=== PATIENT | female | born 1990 | race Caucasian/White ===

== ENCOUNTER 2016-11-27 07:45 | Emergency (ER) | payer OTHER ==
[2016-11-27 07:59] VITALS: BP 153/93
--- NOTE | 2016-11-27 08:43 | RAD ---
INDICATION: Cough and fever. COMPARISON: Comparison is made with a prior chest x-ray study from February 13, 2014. TECHNIQUE: Dual-energy PA and lateral views of the chest were obtained. FINDINGS: The heart is within normal limits in size. Mediastinal and hilar contours appear within normal limits. The lungs are clear. No pleural effusion is present. IMPRESSION: NO EVIDENCE FOR ACTIVE CARDIOPULMONARY DISEASE.
--- NOTE | 2016-12-04 22:53 | UC ---
Jakub Granados Adam, scribed for Marcio Nguyen MD on 11/27/16 at 0754 . Throat Pain/Nasal Edwar HPI - HPI Summary HPI Summary: Pt is a 26 year old female presenting with a dry cough and sore throat. She states that the cough set on 10 days and the sore throat has set on since then. She also c/o generalized myalgia and a fever since yesterday (unknown Tmax). She denies nausea and vomiting. Pt had PNA last year with similar symptoms to these. Surgical Hx of appy and . No Hx of asthma. No other PMHx. Last MP was 10/04. FMHx of DM, HTN, and cardiac disease. - History of Current Complaint Stated Complaint: COUGH Hx Obtained From: Patient Onset/Duration: Gradual Onset, Lasting Days, Still Present Severity: Moderate Cough: Nonproductive Associated Signs & Symptoms: Positive: Fever, Other - Sore throat - Allergies/Home Medications Allergies/Adverse Reactions: Allergies Allergy/AdvReac Type Severity Reaction Status Date / Time No Known Allergies Allergy Verified 12/23/15 21:32 PMH/Surg Hx/FS Hx/Imm Hx - Surgical History Surgical History: Yes Surgery Procedure, Year, and Place: Appendectomy, - Family History Known Family History: Positive: Cardiac Disease, Hypertension, Diabetes - Social History Occupation: Employed Part-time Lives: With Family - Alcohol Use: Rare Substance Use Type: None Smoking Status (MU): Never Smoked Tobacco Review of Systems Constitutional: Fever ENT: Sore Throat Respiratory: Cough Musculoskeletal: Myalgia - Generalized All Other Systems Reviewed And Are Negative: Yes Physical Exam Triage Information Reviewed: Yes Vital Signs: Initial Vital Signs Temp 99.6 F 11/27/16 07:51 Pulse 82 11/27/16 07:51 Resp 18 11/27/16 07:51 BP 153/93 11/27/16 07:51 Pulse Ox 97 11/27/16 07:51 - Additional Comments VITAL SIGNS: Reviewed. GENERAL: Patient is a well developed and nourished feamle with some distress secondary to the shortness of breath. However, she is able to speak in full sentences. HEAD AND FACE: Normocephalic and atraumatic. EYES: PERRLA, EOMI x 2, No injected conjunctiva. EARS: Hearing grossly intact. Ear canals and tympanic membranes WNL MOUTH: Dry oral mucosa. No pharyngeal erythema, no exudate. NECK: Supple, trachea is midline, no adenopathy, no JVD, no carotid bruit. CHEST: Symmetric, No intercostal or abdominal retraction, LUNGS: CTA B/L. CVS: RRR,, S1 and S2 present, no murmurs or gallops appreciated. ABDOMEN: Soft, non-tender. No signs of distention. Positive BS. No rebound, no guarding, and no masses palpated. EXTREMITIES: FROM in all major joints, no edema, no cyanosis or clubbing. NEURO: Alert and oriented x 3. No acute neurological deficits. Speech is normal and follows commands. SKIN: Dry and warm Diagnostics - Laboratory Diagnostic Studies Completed/Ordered: Group A Strep (Rapid) - Negative - Radiology CXR Radiology Interpretation Completed By: ED Physician - Negative for acute cardiopulmonary pathology. Throat Pain/Nasal Course/Dx - Course Assessment/Plan: Pt is a 26 year old female presenting with a dry cough and sore throat. She states that the cough set on 10 days and the sore throat has set on since then. She also c/o generalized myalgia and a fever since yesterday (unknown Tmax). She denies nausea and vomiting. Pt had PNA last year with similar symptoms to these. Rapid strep test: negative. I did a test since LMP pa 10/12/16. Urine test was negative. CXR impression: Negative for acute pathology. I believe all her symptoms are due to viral etiology. Patient was prescribed tessalon tessalon tablets and robitussin DM. She was recommended to return to the ED if she develops a fever, chills, worsening sore throat, difficulty swallowing. Patient understands and agree. Patient is hemodynamically stable and alert and oriented x 3. - Differential Dx/Diagnosis Differential Diagnosis/HQI/PQRI: Influenza, Laryngitis, Pharyngitis, Sinusitis, Tonsillitis, URI Provider Diagnoses: Bronchitis; URI. Discharge - Discharge Plan Condition: Stable Disposition: HOME Prescriptions: Albuterol HFA INHALER* [Ventolin HFA Inhaler*] 1 - 2 puff INH Q4H PRN #1 mdi PRN Reason: Dyspnea Benzonatate CAP* [Tessalon CAP*] 100 mg PO TID #12 cap GuaiFENesin DM* [Robitussin DM*] 10 ml PO Q6H PRN #120 ml PRN Reason: Cough Patient Education Materials: Acute Bronchitis (ED), Upper Respiratory Infection (ED) Forms: *Work Release Referrals: [facility] [place] PHYSICIAN REFERRAL [Outside] Additional Instructions: Follow up with [facility] [place] Physician Referral. The documentation as recorded by the Jakub gavin Adam accurately reflects the service I personally performed and the decisions made by Patrick delgado Walter, MD.
== END 2016-11-27 08:54 | disposition home or self-care (01) ==
LOC: UCEAST 07:45
DX: J40 Bronchitis, not specified as acute or chronic (principal); J06.9 Acute upper respiratory infection, unspecified; Z32.02 Encounter for pregnancy test, result negative
CPT/HCPCS: 71020; 81025; 87651; 99212; G0463

== ENCOUNTER 2017-01-04 18:39 | Emergency (ER) | payer OTHER ==
--- NOTE | 2017-01-04 19:20 | UC ---
Respiratory Complaint HPI - HPI Summary HPI Summary: The patient comes in today for: 1. cough, body aches, nasal congestion, otalgia: Onset: 1 week started with a sore throat and got worse. Palliative/Provocative: Theraflu did not help. Quality: Soreness Region: Shoulder, back, pelvic musculature. Severity: 6/10 Time: Constant. Associated symptoms: Fever: No temperature taken at home. Rhinitis: None Cough: Non-productive. Sinus pressure: None. Wheezing: Today. Inhalers use: in the past but not now. Dyspnea: Worse when going outside with associated shortness of breath. Previous treatment: None * - History of Current Complaint Chief Complaint: UCRespiratory Stated Complaint: UPPER RESPIRATORY Time Seen by Provider: 01/04/17 19:14 Hx Obtained From: Patient Hx Last Menstrual Period: 12/09/16 ?: No - Allergies/Home Medications Allergies/Adverse Reactions: Allergies Allergy/AdvReac Type Severity Reaction Status Date / Time No Known Allergies Allergy Verified 01/04/17 18:50 PMH/Surg Hx/FS Hx/Imm Hx Previously Healthy: No Endocrine History Of: Denies: Diabetes, Thyroid Disease, Hyperthyroidism, Hypothyroidism, Dyslipidemia Cardiovascular History Of: Denies: Cardiac Disorders, Hypertension, Pacemaker/ICD, Myocardial Infarction , Congestive Heart Failure, Atrial Fibrillation, Deep Vein Thrombosis, Bleeding Disorders Respiratory History Of: Reports: Asthma - Inhaler use started 10 years ago, episodically according to respiratory sym Denies: COPD, Bronchitis, Pneumonia, Pulmonary Embolism GI/ History Of: Denies: Gastroesophageal Reflux, Ulcer, Gastrointestinal Bleed, Gall Bladder Disease, Kidney Stones, Diverticulitis, Renal Disease, Urosepsis Neurological History Of: Denies: TIA, CVA, Dementia, Seizures, Migraine Psychological History Of: Denies: Anxiety, Depression, Bipolar Disorder, Schizophrenia, Post Traumatic Stress Disorder Cancer History Of: Denies: Lung Cancer, Colorectal Cancer, Breast Cancer, Prostate Cancer, Cervical Cancer Other History Of: Negative For: HIV, Hepatitis B, Hepatitis C, Anticoagulant Therapy - Surgical History Surgical History: Yes Surgery Procedure, Year, and Place: Appendectomy, - Family History Known Family History: Positive: Hypertension, Diabetes - Social History Occupation: Employed Full-time Lives: With Family Alcohol Use: Rare Substance Use Type: None Smoking Status (MU): Never Smoked Tobacco Review of Systems Constitutional: Negative Skin: Negative Eyes: Negative ENT: Negative Respiratory: Shortness Of Breath, Cough Cardiovascular: Negative Gastrointestinal: Negative Genitourinary: Negative All Other Systems Reviewed And Are Negative: Yes Physical Exam Triage Information Reviewed: Yes Appearance: Well-Appearing, No Pain Distress, Well-Nourished Vital Signs: Initial Vital Signs Temp 98.8 F 01/04/17 18:51 Pulse 76 01/04/17 18:51 Resp 18 01/04/17 18:51 BP 144/85 01/04/17 18:51 Pulse Ox 100 01/04/17 18:51 Vital Signs Reviewed: Yes Eyes: Positive: Conjunctiva Clear. Negative: Discharge ENT: Positive: Hearing grossly normal. Negative: Pharyngeal erythema, Nasal congestion, Nasal drainage, TM bulging, TM dull, TM red, Tonsillar swelling, Tonsillar exudate Dental: Negative: Gross Decay/Caries @, Dental Fracture @ Neck: Positive: Supple, Nontender, No Lymphadenopathy. Negative: Nuchal Rigidity Respiratory: Positive: Chest non-tender, Lungs clear, No respiratory distress, No accessory muscle use. Negative: Crackles, Wheezing Cardiovascular: Positive: RRR, No Murmur Abdomen Description: Positive: Nontender, No Organomegaly, Soft. Negative: Distended, Guarding Musculoskeletal: Positive: Strength Intact, ROM Intact Neurological: Positive: Alert, Muscle Tone Normal Psychological: Positive: Normal Response To Family, Age Appropriate Behavior, Consolable Skin: Negative: rashes, breakdown UC Diagnostic Evaluation - Laboratory O2 Sat by Pulse Oximetry: 100 Re-Evaluation - Re-Evaluation First Eval Change: Unchanged - DuoNeb treatment did not help the patients dyspnea. She did not benefit from this. Respiratory Course/Dx - Differential Dx/Diagnosis Differential Diagnosis/HQI/PQRI: Bronchitis, Sinusitis Provider Diagnoses: Upper respiratory infection. Cough (with some wheezing),. Post infectious cough. Discharge - Discharge Plan Condition: Stable Disposition: HOME Patient Education Materials: Chronic Cough (ED), Upper Respiratory Infection ( ED), Viral Syndrome (ED) Referrals: No Primary Care Phys,NOPCP [Primary Care Provider] - 1 Week (Please see your primary care provider in about a week to see how well you are doing. If you get worse, please be seen sooner by your primary care provider or us. IF you don't have a primary care provider, please reference the list of local providers included with your discharge papers to get one. )
[2017-01-04] MEDS ORDERED: Albuterol 2.5 MG/3 ML NEB.SOL* (0.083%) INH ONE (19:24)
[2017-01-04] MEDS ORDERED: Ipratropium 0.5MG/2.5ML NEB* 0.5 MG/2.5 ML NEB.SOLN INH ONE (19:25)
[2017-01-04] MEDS ORDERED: Acetaminop/Codeine 30 MG TAB* 1 TAB (300 MG/30 MG) PO ONE (20:01)
[2017-01-04 20:20] VITALS: BP 133/86
== END 2017-01-04 20:19 | disposition home or self-care (01) ==
LOC: UCCORT 18:39
DX: J06.9 Acute upper respiratory infection, unspecified (principal); R05 Cough
CPT/HCPCS: 99212; A9270-GY; G0463; J7644

== ENCOUNTER 2018-01-10 12:50 | Emergency (ER) | payer OTHER ==
[2018-01-10 13:13] VITALS: BP 135/72
[2018-01-10] MEDS ORDERED: predniSONE TAB* 20 MG PO ONE (13:23)
[2018-01-10] MEDS ORDERED: Albuterol 2.5 MG/3 ML NEB.SOL* (0.083%) INH ONE (13:23)
--- NOTE | 2018-01-10 13:24 | UC ---
Respiratory Complaint HPI - HPI Summary HPI Summary: Patient dx with flu 9 days aog, still has cough that is keeping her up at night. - History of Current Complaint Chief Complaint: UCRespiratory Stated Complaint: COUGH Time Seen by Provider: 01/10/18 13:16 Hx Obtained From: Patient Hx Last Menstrual Period: 12/25/17 ?: No Onset/Duration: Gradual Onset, Lasting Days Timing: Constant Severity Initially: Mild Severity Currently: Mild Pain Intensity: 0 Character: Cough: Nonproductive Aggravating Factors: Exertion, Deep Breaths Alleviating Factors: Nothing Associated Signs And Symptoms: Positive: URI - Allergies/Home Medications Allergies/Adverse Reactions: Allergies Allergy/AdvReac Type Severity Reaction Status Date / Time No Known Allergies Allergy Verified 01/10/18 13:05 Home Medications: Home Medications Dm/PE/Acetaminophen/Doxylamine [Daytime-Nighttime Cold-Flu] 20 ml PO Q4H PRN 08/20 [History Confirmed 01/10/18] guaiFENesin [Mucinex] 600 mg PO ONCE PRN 01/10/18 [History Confirmed 01/10/18] PMH/Surg Hx/FS Hx/Imm Hx Previously Healthy: Yes Other History Of: Negative For: HIV, Hepatitis B, Hepatitis C, Anticoagulant Therapy - Surgical History Surgical History: Yes Surgery Procedure, Year, and Place: Appendectomy, - Family History Known Family History: Positive: None, Cardiac Disease, Hypertension, Diabetes - Social History Alcohol Use: Rare Substance Use Type: None Smoking Status (MU): Never Smoked Tobacco Review of Systems Constitutional: Negative Skin: Negative Eyes: Negative ENT: Negative Respiratory: Cough Cardiovascular: Negative Gastrointestinal: Negative Genitourinary: Negative Motor: Negative Neurovascular: Negative Musculoskeletal: Negative Neurological: Negative Psychological: Negative Is Patient Immunocompromised?: No All Other Systems Reviewed And Are Negative: Yes Physical Exam Triage Information Reviewed: Yes Appearance: Well-Appearing, Well-Nourished, Pain Distress Vital Signs: Initial Vital Signs Temp 99 F 01/10/18 13:09 Pulse 80 01/10/18 13:09 Resp 20 01/10/18 13:09 BP 135/72 01/10/18 13:09 Pulse Ox 99 01/10/18 13:09 Vital Signs Reviewed: Yes Eye Exam: Normal ENT: Positive: Pharyngeal erythema Dental Exam: Normal Neck exam: Normal Neck: Positive: Supple, Nontender, No Lymphadenopathy Respiratory Exam: Normal Respiratory: Positive: Chest non-tender, Lungs clear, Normal breath sounds, Other: - cough present Cardiovascular Exam: Normal Cardiovascular: Positive: RRR, No Murmur, Pulses Normal Abdominal Exam: Normal Abdomen Description: Positive: Nontender, No Organomegaly, Soft Bowel Sounds: Positive: Present Musculoskeletal Exam: Normal Neurological Exam: Normal Psychological Exam: Normal Skin Exam: Normal UC Diagnostic Evaluation - Laboratory O2 Sat by Pulse Oximetry: 99 - Radiology Xray Interpretation: No Acute Changes Radiology Interpretation Completed By: Radiologist Respiratory Course/Dx - Course Course Of Treatment: hx obtained, exam performed ,meds reviewed, treated for cough - Differential Dx/Diagnosis Differential Diagnosis/HQI/PQRI: Bronchitis, Influenza Provider Diagnoses: cough. wheezing. influenza Discharge - Discharge Plan Condition: Stable Disposition: HOME Prescriptions: Albuterol HFA INHALER* [Ventolin HFA Inhaler*] 2 puff INH Q2H PRN #1 mdi PRN Reason: Sob/Wheezing guaiFENesin/CODIEN 100MG-10MG* [Robitussin AC 100Mg-10Mg*] 10 ml PO BEDTIME PRN #70 ml MDD 10 ml PRN Reason: Cough predniSONE TAB* [Deltasone TAB*] 40 mg PO DAILY #14 tab Patient Education Materials: Bronchospasm (ED) Referrals: No Primary Care Phys,NOPCP [Primary Care Provider] - Additional Instructions: 1. use the medication as prescribed. 2. COntinue to get plenty of rest and fluids. 3. FOllow up as needed.
--- NOTE | 2018-01-10 14:18 | RAD ---
HISTORY: Cough, shortness of breath COMPARISONS: November 27, 2016 VIEWS: 4: Frontal dual-energy and lateral views of the chest. FINDINGS: CARDIOMEDIASTINAL SILHOUETTE: The cardiomediastinal silhouette is normal. JUDITH: The judith are normal. PLEURA: The costophrenic angles are sharp. No pleural abnormalities are noted. LUNG PARENCHYMA: The lungs are clear. ABDOMEN: The upper abdomen is clear. There is no subphrenic gas. BONES AND SOFT TISSUES: No bone or soft tissue abnormalities are noted. OTHER: None. IMPRESSION: NO ACTIVE CARDIOPULMONARY DISEASE.
== END 2018-01-10 14:35 | disposition home or self-care (01) ==
LOC: UCCORT 12:50
DX: R05 Cough (principal); R06.2 Wheezing; J11.1 Influenza due to unidentified influenza virus with other respiratory manifestations; Z32.02 Encounter for pregnancy test, result negative
CPT/HCPCS: 71046; 84702; 99212; G0463; J7512

== ENCOUNTER 2018-01-23 15:03 | Emergency (ER) | payer OTHER ==
[2018-01-23 15:13] VITALS: BP 138/79
[2018-01-23] MEDS ORDERED: Ipratropium 0.5MG/2.5ML NEB* 0.5 MG/2.5 ML NEB.SOLN INH ONE (15:36)
[2018-01-23] MEDS ORDERED: Albuterol 2.5 MG/3 ML NEB.SOL* (0.083%) INH ONE ×2 (15:36→16:24)
--- NOTE | 2018-01-23 15:41 | UC ---
Respiratory Complaint HPI - HPI Summary HPI Summary: cough and wheezing x >3weeks no f/c sinus pressure and pain cough productive of dark sputum no CP - History of Current Complaint Chief Complaint: UCGeneralIllness Stated Complaint: COUGH, SHORTNESS OF BREATH Time Seen by Provider: 01/23/18 15:17 Hx Obtained From: Patient Hx Last Menstrual Period: 12/25/17 Onset/Duration: Sudden Onset Timing: Constant Severity Initially: Moderate Severity Currently: Moderate Pain Intensity: 0 Pain Scale Used: 0-10 Numeric Character: Cough: Productive Aggravating Factors: Exertion Alleviating Factors: Bronchodilator Associated Signs And Symptoms: Positive: Wheezing, URI - Allergies/Home Medications Allergies/Adverse Reactions: Allergies Allergy/AdvReac Type Severity Reaction Status Date / Time No Known Allergies Allergy Verified 01/23/18 15:13 PMH/Surg Hx/FS Hx/Imm Hx Previously Healthy: Yes Respiratory History: Bronchitis, Pneumonia Other History Of: Negative For: HIV, Hepatitis B, Hepatitis C, Anticoagulant Therapy - Surgical History Surgical History: Yes Surgery Procedure, Year, and Place: Appendectomy, - Family History Known Family History: Positive: Cardiac Disease, Hypertension, Diabetes - Social History Alcohol Use: Rare Substance Use Type: None Smoking Status (MU): Never Smoked Tobacco Review of Systems Constitutional: Fatigue Skin: Negative Eyes: Negative ENT: Nasal Discharge, Sinus Congestion Respiratory: Cough Cardiovascular: Negative Gastrointestinal: Negative Genitourinary: Negative Motor: Negative Neurovascular: Negative Musculoskeletal: Negative Neurological: Negative Psychological: Negative Is Patient Immunocompromised?: No All Other Systems Reviewed And Are Negative: Yes Physical Exam Triage Information Reviewed: Yes Appearance: Well-Appearing, No Pain Distress, Well-Nourished Vital Signs: Initial Vital Signs Temp 98.2 F 01/23/18 15:10 Pulse 102 01/23/18 15:10 Resp 18 01/23/18 15:10 BP 138/79 01/23/18 15:10 Pulse Ox 100 01/23/18 15:10 Vital Signs Reviewed: Yes Eyes: Positive: Conjunctiva Clear ENT: Positive: Hearing grossly normal, Nasal congestion, TMs normal, Sinus tenderness, Uvula midline. Negative: Nasal drainage, Trismus, Muffled voice, Hoarse voice, Dental tenderness Neck: Positive: Supple, Nontender, No Lymphadenopathy Respiratory: Positive: No respiratory distress, No accessory muscle use, Wheezing Cardiovascular: Positive: RRR, No Murmur Musculoskeletal: Positive: ROM Intact, No Edema Neurological: Positive: Alert Psychological Exam: Normal Skin Exam: Normal UC Diagnostic Evaluation - Laboratory O2 Sat by Pulse Oximetry: 100 - normal/not hypoxic - Radiology Xray Interpretation: No Acute Changes Radiology Interpretation Completed By: Radiologist Re-Evaluation - Re-Evaluation First Eval Re-Evaluation Time: 16:20 Change: Improved - less wheezing Second Eval Re-Evaluation Time: 16:52 Change: Improved - lungs clear Respiratory Course/Dx - Differential Dx/Diagnosis Provider Diagnoses: acute bronchitis with bronchospasm Discharge - Sign-Out/Discharge Documenting (check all that apply): Discharge - Discharge Plan Condition: Stable Disposition: HOME Prescriptions: Albuterol HFA INHALER* [Ventolin HFA Inhaler*] 2 puff INH QID #1 mdi Amoxicillin PO (*) [Amoxicillin 875 MG (*)] 875 mg PO BID #20 tab Benzonatate CAP* [Tessalon CAP*] 100 - 200 mg PO TID PRN #28 cap PRN Reason: Cough predniSONE [Deltasone] 40 mg PO DAILY #10 tab Patient Education Materials: Bronchospasm (ED), Acute Bronchitis (ED) Referrals: No Primary Care Phys,NOPCP [Primary Care Provider] - Additional Instructions: recheck for new or worsening symptoms you need to find an MD in [place] to follow up with if your cough and wheezing persists you may need other testing we are treating you for bronchitis but other things can cause wheezing and if this persists you may need to see a specialist - Billing Disposition and Condition Condition: STABLE Disposition: HOME
--- NOTE | 2018-01-23 16:09 | RAD ---
Indication: Persistent cough. 2 views of the chest including dual energy PA views demonstrate no mediastinal shift. Heart is of normal size and configuration. Lung ordaz are clear. IMPRESSION: No active cardiopulmonary disease is noted.
[2018-01-23] MEDS ORDERED: predniSONE TAB* 20 MG PO ONE (16:24)
== END 2018-01-23 16:57 | disposition home or self-care (01) ==
LOC: UCCORT 15:03
DX: J20.9 Acute bronchitis, unspecified (principal)
CPT/HCPCS: 71046; 99212; G0463; J7512

== ENCOUNTER 2019-01-30 09:17 | Emergency (ER) | payer MEDICAID, OTHER ==
[2019-01-30 09:57] VITALS: BP 104/85
--- NOTE | 2019-01-30 11:06 | UC ---
Throat Pain/Nasal Edwar HPI - HPI Summary HPI Summary: Pt presents with c/o nasal congestion, sinus pressure, pain and cough. Pt is 32 weeks and new to area. Pt called OB and was referred to PCP. Pt does not have PCP. - History of Current Complaint Chief Complaint: UCRespiratory Stated Complaint: CONGESTION/COUGH Time Seen by Provider: 01/30/19 10:57 Hx Obtained From: Patient Hx Last Menstrual Period: 12/25/17 ?: Yes Onset/Duration: Gradual Onset, Lasting Days, Still Present Severity: Moderate Pain Intensity: 0 Cough: Productive Associated Signs & Symptoms: Positive: Nasal Discharge Related History: Seasonal Allergies - possible - Epiglottits Risk Factors Epiglottis Risk Factors: Negative - Allergies/Home Medications Allergies/Adverse Reactions: Allergies Allergy/AdvReac Type Severity Reaction Status Date / Time No Known Allergies Allergy Verified 01/30/19 09:52 Home Medications: Home Medications Cholecalciferol TAB* [Vitamin D TAB*] 1,000 unit PO DAILY 01/30/19 [History Confirmed 01/30/19] Vitamin TAB* 1 tab PO DAILY 01/30/19 [History Confirmed 01/30/19] PMH/Surg Hx/FS Hx/Imm Hx Previously Healthy: Yes Other History Of: Negative For: HIV, Hepatitis B, Hepatitis C, Anticoagulant Therapy - Surgical History Surgical History: Yes Surgery Procedure, Year, and Place: Appendectomy, - Family History Known Family History: Positive: Cardiac Disease, Hypertension, Diabetes - Social History Occupation: Employed Full-time Lives: With Family Alcohol Use: None Substance Use Type: None Smoking Status (MU): Never Smoked Tobacco Have You Smoked in the Last Year: No - Immunization History Vaccination Up to Date: Yes Review of Systems All Other Systems Reviewed And Are Negative: Yes Constitutional: Positive: Chills, Fatigue Skin: Positive: Negative Eyes: Positive: Negative ENT: Positive: Sore Throat, Nasal Discharge, Sinus Congestion, Sinus Pain/ Tenderness Respiratory: Positive: Cough Cardiovascular: Positive: Negative Gastrointestinal: Positive: Negative Genitourinary: Positive: Negative Motor: Positive: Negative Neurovascular: Positive: Negative Musculoskeletal: Positive: Myalgia Neurological: Positive: Headache Psychological: Positive: Negative Is Patient Immunocompromised?: No Physical Exam Triage Information Reviewed: Yes Appearance: Ill-Appearing Vital Signs: Initial Vital Signs Temp 97.8 F 01/30/19 09:51 Pulse 90 01/30/19 09:51 Resp 18 01/30/19 09:51 BP 104/85 01/30/19 09:51 Pulse Ox 100 01/30/19 09:51 Vital Signs Reviewed: Yes Eye Exam: Normal ENT: Positive: Nasal congestion, Nasal drainage, Sinus tenderness Dental Exam: Normal Neck exam: Normal Respiratory Exam: Normal Cardiovascular Exam: Normal Musculoskeletal Exam: Normal Neurological Exam: Normal Psychological Exam: Normal Skin Exam: Normal Throat Pain/Nasal Course/Dx - Differential Dx/Diagnosis Differential Diagnosis/HQI/PQRI: Pharyngitis, Sinusitis, Tonsillitis, URI Provider Diagnosis: Sinusitis Discharge - Sign-Out/Discharge Documenting (check all that apply): Patient Departure All imaging exams completed and their final reports reviewed: No Studies - Discharge Plan Condition: Stable Disposition: HOME Prescriptions: Amoxicillin PO (*) [Amoxicillin 875 MG (*)] 875 mg PO Q12H #20 tab Cetirizine* [ZyrTEC 10 MG TAB*] 10 mg PO DAILY #30 tab Fluticasone NASAL SPRAY 50MCG* [Flonase NASAL SPRAY 50MCG*] 2 spray BOTH NARES DAILY 7 Days #1 btl Patient Education Materials: Sinusitis (ED), Allergic Rhinitis (ED) Referrals: [facility] [place] [facility] [Outside] No Primary Care Phys,NOPCP [Primary Care Provider] - - Billing Disposition and Condition Condition: STABLE Disposition: Home - Attestation Statements Provider Attestation: I was available for consult. This patient was seen by the JORDAN. The patient was not presented to, seen by, or examined by me. EK
== END 2019-01-30 11:17 | disposition home or self-care (01) ==
LOC: UCCORT 09:17
DX: O99.513 Diseases of the respiratory system complicating pregnancy, third trimester (principal); J32.9 Chronic sinusitis, unspecified; O99.89 Other specified diseases and conditions complicating pregnancy, childbirth and the puerperium; M79.10 Myalgia, unspecified site; Z3A.32 32 weeks gestation of pregnancy
CPT/HCPCS: 99212; G0463

== ENCOUNTER 2022-01-30 05:42 | Inpatient (IN) ==
[2022-01-30] MEDS ORDERED: Famotidine IV 10 MG/ML 2 ml VIAL (20 mg) IV ONE (06:00)
[2022-01-30] MEDS ORDERED: Buffered Lidocaine 1% SYRIN 1 ml INTRADERM ONE (06:00)
[2022-01-30] MEDS ORDERED: Lactated Ringers 1000 ml BAG 1,000 ML IV SCH (06:00)
[2022-01-30] MEDS ORDERED: Scopolamine 1 mg/72hr PATCH ONE (06:16)
[2022-01-30] MEDS ORDERED: Heparin 5000 UNITS/ML 1 mL VIAL ONE (06:17)
[2022-01-30] MEDS ORDERED: ceFAZolin 2 GM in NS PREMIX 2 GM/100 ML BAG IVPB ONE (06:17)
[2022-01-30] MEDS ORDERED: Famotidine IV 10 MG/ML 2 ml VIAL (20 mg) ONE (06:17)
[2022-01-30] MEDS ORDERED: ceFAZolin VIAL 1 GM in NS 0.9% 50 ML 50 ML IVPB ONE (07:00)
[2022-01-30] MEDS ORDERED: Bupivacaine 0.25% EPI 200,000 30 ML SDV ONE ×2 (07:05→08:19)
[2022-01-30] MEDS ORDERED: Methylene Blue 0.5 % 50 MG/10 ML AMP IV ONE (07:05)
[2022-01-30] MEDS ORDERED: Dexamethasone IV 4 MG/ML VIAL 1 ml VIAL ONE (07:10)
[2022-01-30] MEDS ORDERED: Propofol 10 MG/ML 20 ML BTL ONE (07:10)
[2022-01-30] MEDS ORDERED: Midazolam 2 mg/2 ml VIAL 1 mg/ml 2 ml VIAL (2 mg) ONE (07:10)
[2022-01-30] MEDS ORDERED: fentaNYL 100 mcg/2 ml 50 MCG/ML VIAL ONE ×4 (07:10→11:19)
[2022-01-30] MEDS ORDERED: Lidocaine 2% PF 5 ML VIAL ONE (07:10)
[2022-01-30] MEDS ORDERED: Rocuronium 50 mg VIAL 10 mg/ml 5 ml VIAL (50 mg) ONE ×2 (07:10→08:33)
[2022-01-30] MEDS ORDERED: Acetaminophen IV 1 GM/100ML 100 ML IV ONE (08:29)
[2022-01-30] MEDS ORDERED: HYDROmorphone 0.5 MG/0.5 ML SYRINGE ONE (09:17)
[2022-01-30] MEDS ORDERED: Ondansetron 4 mg VIAL 2 MG/ML 2 ml VIAL IV PRN ×2 (09:56→10:48)
[2022-01-30] MEDS ORDERED: DiMENhydriNATE IV 50 mg/ml 1 ml VIAL IV PUSH PRN (09:56)
[2022-01-30] MEDS ORDERED: Naloxone 0.4 mg VIAL 0.4 mg/ml 1 ml VIAL IV PRN (09:56)
[2022-01-30] MEDS ORDERED: Ondansetron 4 mg VIAL 2 MG/ML 2 ml VIAL ONE (10:21)
[2022-01-30] MEDS ORDERED: HYDROcodone/ACET. 7.5/325 LIQ 15 ML UDC PO PRN (10:48)
[2022-01-30] MEDS: fentaNYL 100 mcg/2 ml 50 MCG/ML VIAL IV PRN ×2 (11:24→11:37)
[2022-01-30] MEDS: Lactated Ringers 1000 ml BAG 1,000 ML IV SCH (12:54)
[2022-01-30] MEDS: HYDROmorphone 0.5 MG/0.5 ML SYRINGE IV SLOW PU PRN (16:22)
[2022-01-30] MEDS: Heparin 5000 UNITS/ML 1 mL VIAL SUBCUT SCH (20:08)
[2022-01-31] MEDS: Lactated Ringers 1000 ml BAG 1,000 ML IV SCH ×2 (01:11→08:06)
[2022-01-31] MEDS: Heparin 5000 UNITS/ML 1 mL VIAL SUBCUT SCH ×2 (05:20→12:55)
[2022-01-31] MEDS: HYDROmorphone 0.5 MG/0.5 ML SYRINGE IV SLOW PU PRN (05:20)
[2022-01-31] MEDS ORDERED: D5W 1/2 NS KCl 20 meq 1000 ml 1,000 ML IV SCH (11:00)
[2022-01-31 11:13] VITALS: BP 119/74
== END 2022-01-31 13:45 | disposition home or self-care (01) | DRG 403 ==
LOC: OR 05:42 → SSU 13:12
PROVIDERS: ADMIT Surgery; ATTEND Surgery